=== PATIENT | male | born 2000 | race American Indian/Alaskan Native ===

== ENCOUNTER 2021-04-08 20:29 | Emergency (ER) | payer BC ==
[2021-04-08 20:56] VITALS: BP 114/77; PULSE 98
[2021-04-08] MEDS ORDERED: Ibuprofen 600 MG Tab PO ONE (21:29)
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
[2021-04-08 22:10] LABS: ANION GAP 12.1 mEq/L (7-13); CHLORIDE,CL 102 mmol/L (98-107); SODIUM,NA 140 mmol/L (136-145)
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
== END 2021-04-08 23:38 | disposition home or self-care (01) ==
LOC: DL.ED 20:29
DX: S06.0X0A Concussion without loss of consciousness, initial encounter (principal); T14.8XXA Other injury of unspecified body region, initial encounter; Z72.0 Tobacco use; Z88.2 Allergy status to sulfonamides; Z88.1 Allergy status to other antibiotic agents; Y04.0XXA Assault by unarmed brawl or fight, initial encounter
CPT/HCPCS: 36415; 71101-LT; 72072; 80053; 80305-QW; 80307; 81001; 85025; 99283; 99284-25; A9270-GY